=== PATIENT | male | born 1975 | race Caucasian/White ===

== ENCOUNTER 2020-08-14 11:43 | Inpatient (IN) | payer OTHER ==
[2020-08-14 12:51] VITALS: BMI 28.8
[2020-08-14] MEDS ORDERED: BISMUTH SUBSALICYLATE 524 MG/30 ML UD PO PRN (17:08)
[2020-08-14] MEDS ORDERED: IBUPROFEN 400 MG TABLET (FP) PO PRN (17:08)
[2020-08-14] MEDS ORDERED: MAGNESIUM HYDROX 2400MG/30ML ORAL SUSPENSION 30 ML CUP PO PRN (17:08)
[2020-08-14] MEDS ORDERED: ONDANSETRON *ODT* 4 MG TABLET SL PRN (17:08)
[2020-08-14] MEDS ORDERED: MAGNESIUM CITRATE 300 ML BOTTLE PO PRN (17:08)
[2020-08-14] MEDS ORDERED: ACETAMINOPHEN 325 MG TABLET (FP) PO PRN ×2 (17:08)
[2020-08-14] MEDS ORDERED: METHOCARBAMOL 500 MG TABLET PO PRN (17:08)
[2020-08-14] MEDS ORDERED: chlordiazePOXIDE HCL 25 MG CAPSULE PO PRN (17:08)
[2020-08-14] MEDS ORDERED: MENTHOL/PHENOL 1 EACH UD MM PRN (17:08)
[2020-08-14] MEDS ORDERED: MAG HYDROX/AL HYDROX/SIMETH 30 ML UNIT-DOSE CUP PO PRN (17:08)
[2020-08-14] MEDS ORDERED: NICOTINE POLACRILEX 2 MG GUM BUC PRN (17:08)
[2020-08-14] MEDS ORDERED: NALOXONE (NARCAN) HCL 4 MG/0.1 ML SPRAY NS PRN (17:08)
[2020-08-14] MEDS ORDERED: LORazepam 1 MG TABLET PO PRN (17:31)
[2020-08-14] MEDS: PRENATAL VITAMINS W/ FOLIC ACID TABLET (FP) PO SCH (18:42)
[2020-08-14] MEDS: hydrOXYzine PAMOATE 25 MG CAPSULE (FP) PO SCH ×2 (18:47→23:31)
[2020-08-14] MEDS: NICOTINE 14 MG/24 HOURS TOPICAL PATCH TD SCH (18:47)
[2020-08-14] MEDS ORDERED: chlordiazePOXIDE HCL 25 MG CAPSULE PO SCH (23:00)
[2020-08-14] MEDS: THIAMINE HCL 100 MG TABLET (FP) PO SCH (23:31)
[2020-08-14] MEDS: LORazepam 2 MG TABLET PO SCH (23:31)
[2020-08-14] MEDS: MELATONIN 5 MG TABLETS PO SCH (23:31)
[2020-08-15] MEDS: LORazepam 2 MG TABLET PO SCH ×4 (06:09→22:28)
[2020-08-15] MEDS: hydrOXYzine PAMOATE 25 MG CAPSULE (FP) PO SCH (06:09)
[2020-08-15 10:17] LABS: HEMATOCRIT 42.3 % (35.4-49); HEMOGLOBIN 14.3 GM/dL (11.7-16.9); MCHC 33.8 g/dl (32.0-35.9); MEAN CELL VOLUME 88.8 fl (80-96); MEAN PLT VOLUME 7.1 fl (7.5-11.1); PLATELET COUNT 270 K/MM3 (134-434); RBC 4.77 M/mm3 (4.00-5.60); RDW 13.4 % (11.9-15.9); WHITE BLOOD COUNT 7.2 K/mm3 (4.0-10.0)
[2020-08-15 10:34] LABS: ALBUMIN 3.3 g/dl (3.4-5.0); BLOOD UREA NITROGEN 10.1 mg/dL (7-18)
[2020-08-15 10:35] LABS: CREATININE 0.9 mg/dL (0.55-1.3)
[2020-08-15 10:36] LABS: BILIRUBIN,TOTAL 0.3 mg/dL (0.2-1); CALCIUM 9.2 mg/dL (8.5-10.1); TOT PROT 6.6 g/dl (6.4-8.2)
[2020-08-15] MEDS: NICOTINE 14 MG/24 HOURS TOPICAL PATCH TD SCH (11:25)
[2020-08-15] MEDS: PRENATAL VITAMINS W/ FOLIC ACID TABLET (FP) PO SCH (11:25)
[2020-08-15] MEDS: METHADONE HCL 40 MG DISPERSABLE TABLET PO SCH (11:25)
[2020-08-15] MEDS ORDERED: PNEUMOCOCCAL 23 VACCINE 0.5 ML VIAL IM ONE (12:15)
[2020-08-15] MEDS ORDERED: PNEUMOC 13-VAL CONJ-DIP CRM/PF 0.5 ML DISP.SYRIN IM ONE (12:15)
[2020-08-15] MEDS ORDERED: FLU VACCINE (FLULAVAL) PF 60 MCG/0.5 ML SYRINGE 2020-2021 IM ONE (12:15)
[2020-08-15] MEDS: MELATONIN 5 MG TABLETS PO SCH (22:26)
[2020-08-15] MEDS: THIAMINE HCL 100 MG TABLET (FP) PO SCH (22:27)
[2020-08-16] MEDS ORDERED: chlordiazePOXIDE HCL 25 MG CAPSULE PO SCH (05:00)
[2020-08-16] MEDS: METHADONE HCL 40 MG DISPERSABLE TABLET PO SCH (06:08)
[2020-08-16] MEDS: LORazepam 1 MG TABLET PO SCH ×4 (06:12→22:49)
[2020-08-16] MEDS: NICOTINE 14 MG/24 HOURS TOPICAL PATCH TD SCH (10:05)
[2020-08-16] MEDS: PRENATAL VITAMINS W/ FOLIC ACID TABLET (FP) PO SCH (10:06)
[2020-08-16] MEDS: THIAMINE HCL 100 MG TABLET (FP) PO SCH (22:48)
[2020-08-16] MEDS: MELATONIN 5 MG TABLETS PO SCH (22:48)
[2020-08-17] MEDS ORDERED: chlordiazePOXIDE HCL 10 MG CAPSULE PO PRN
[2020-08-17] MEDS ORDERED: LORazepam 0.5 MG TABLET PO PRN
[2020-08-17] MEDS ORDERED: chlordiazePOXIDE HCL 10 MG CAPSULE PO SCH (05:00)
[2020-08-17] MEDS: METHADONE HCL 40 MG DISPERSABLE TABLET PO SCH (05:58)
[2020-08-17] MEDS: LORazepam 0.5 MG TABLET PO SCH ×4 (06:01→22:25)
[2020-08-17 08:06] LABS: SARS-CoV-2 NAA Not Detected (Not Detected)
[2020-08-17] MEDS: NICOTINE 14 MG/24 HOURS TOPICAL PATCH TD SCH (10:06)
[2020-08-17] MEDS: PRENATAL VITAMINS W/ FOLIC ACID TABLET (FP) PO SCH (10:06)
[2020-08-17] MEDS: MELATONIN 5 MG TABLETS PO SCH (22:25)
[2020-08-17] MEDS: THIAMINE HCL 100 MG TABLET (FP) PO SCH (22:25)
[2020-08-18] MEDS ORDERED: LORazepam 0.5 MG TABLET PO ONE (05:00)
[2020-08-18] MEDS ORDERED: chlordiazePOXIDE HCL 10 MG CAPSULE PO SCH (05:00)
[2020-08-18 05:59] VITALS: BP 112/69; PULSE 75; TEMP 96.9
[2020-08-18] MEDS: METHADONE HCL 40 MG DISPERSABLE TABLET PO SCH (06:40)
[2020-08-18] MEDS: PRENATAL VITAMINS W/ FOLIC ACID TABLET (FP) PO SCH (10:12)
[2020-08-18] MEDS: NICOTINE 14 MG/24 HOURS TOPICAL PATCH TD SCH (10:12)
[2020-08-19] MEDS ORDERED: chlordiazePOXIDE HCL 10 MG CAPSULE PO ONE (05:00)
== END 2020-08-18 11:01 | disposition other institution (70) | DRG 773 ==
LOC: YASAS 11:43 → Y6N 16:06
PROVIDERS: ADMIT Allergy & Immunology; ATTEND Allergy & Immunology
PROC: HZ2ZZZZ Detoxification Services for Substance Abuse Treatment (ICD-10-PCS; principal; 2020-08-14)
DX: F10.230 Alcohol dependence with withdrawal, uncomplicated (principal); F11.20 Opioid dependence, uncomplicated; F14.10 Cocaine abuse, uncomplicated; F13.10 Sedative, hypnotic or anxiolytic abuse, uncomplicated; F17.210 Nicotine dependence, cigarettes, uncomplicated; F19.24 Other psychoactive substance dependence with psychoactive substance-induced mood disorder; E11.9 Type 2 diabetes mellitus without complications; R74.01 Elevation of levels of liver transaminase levels; Z59.0 Homelessness
CPT/HCPCS: 36415; 80053; 82962; 85027; 86780; C9803; U0003; U0005

== ENCOUNTER 2020-08-18 11:24 | Inpatient (IN) | payer OTHER ==
[2020-08-18] MEDS ORDERED: PNEUMOC 13-VAL CONJ-DIP CRM/PF 0.5 ML DISP.SYRIN IM ONE (11:58)
[2020-08-18] MEDS ORDERED: MAG HYDROX/AL HYDROX/SIMETH 30 ML UNIT-DOSE CUP PO PRN (12:06)
[2020-08-18] MEDS ORDERED: MAGNESIUM CITRATE 300 ML BOTTLE PO PRN (12:06)
[2020-08-18] MEDS ORDERED: guaiFENesin 200 MG/10 ML 10 ML UNIT-DOSE CUPS PO PRN (12:06)
[2020-08-18] MEDS ORDERED: MAGNESIUM HYDROX 2400MG/30ML ORAL SUSPENSION 30 ML CUP PO PRN (12:06)
[2020-08-18] MEDS ORDERED: LOPERAMIDE HCL 2 MG CAPSULE PO PRN (12:06)
[2020-08-18] MEDS ORDERED: ACETAMINOPHEN 325 MG TABLET (FP) PO PRN (12:06)
[2020-08-18] MEDS ORDERED: MENTHOL/PHENOL 1 EACH UD MM PRN (12:06)
[2020-08-18] MEDS ORDERED: IBUPROFEN 400 MG TABLET (FP) PO PRN (12:06)
[2020-08-18] MEDS ORDERED: P-EPHED 60MG/TRIPROLIDI 2.5MG TABLET PO PRN (12:06)
[2020-08-18] MEDS ORDERED: NICOTINE POLACRILEX 2 MG GUM BUC PRN (12:06)
[2020-08-18] MEDS: MELATONIN 5 MG TABLETS PO PRN (21:23)
[2020-08-18] MEDS: THIAMINE HCL 100 MG TABLET (FP) PO SCH (21:23)
[2020-08-18] MEDS: MIRTAZAPINE 15 MG TABLET (FP) PO SCH (21:24)
[2020-08-18] MEDS ORDERED: MELATONIN 5 MG TABLETS PO SCH (22:00)
[2020-08-19] MEDS: METHADONE HCL 40 MG DISPERSABLE TABLET PO SCH (06:08)
[2020-08-19] MEDS: PRENATAL VITAMINS W/ FOLIC ACID TABLET (FP) PO SCH (10:20)
[2020-08-19] MEDS ORDERED: PNEUMOCOCCAL 23 VACCINE 0.5 ML VIAL IM ONE (12:00)
[2020-08-19] MEDS: MELATONIN 5 MG TABLETS PO PRN (21:19)
[2020-08-19] MEDS: THIAMINE HCL 100 MG TABLET (FP) PO SCH (21:20)
[2020-08-19] MEDS: MIRTAZAPINE 15 MG TABLET (FP) PO SCH (21:20)
[2020-08-20] MEDS: METHADONE HCL 40 MG DISPERSABLE TABLET PO SCH (06:36)
[2020-08-20] MEDS: PRENATAL VITAMINS W/ FOLIC ACID TABLET (FP) PO SCH (10:40)
[2020-08-20] MEDS: THIAMINE HCL 100 MG TABLET (FP) PO SCH (21:22)
[2020-08-20] MEDS: MELATONIN 5 MG TABLETS PO PRN (21:22)
[2020-08-20] MEDS: MIRTAZAPINE 15 MG TABLET (FP) PO SCH (21:23)
[2020-08-21] MEDS: METHADONE HCL 40 MG DISPERSABLE TABLET PO SCH (06:12)
[2020-08-21] MEDS: PRENATAL VITAMINS W/ FOLIC ACID TABLET (FP) PO SCH (09:57)
[2020-08-21] MEDS ORDERED: cloNIDine HCL 0.1 MG TABLET PO ONE (20:11)
[2020-08-21] MEDS: THIAMINE HCL 100 MG TABLET (FP) PO SCH (21:16)
[2020-08-21] MEDS: MIRTAZAPINE 15 MG TABLET (FP) PO SCH (21:16)
[2020-08-22 05:09] LABS: SARS-CoV-2 NAA Not Detected (Not Detected)
[2020-08-22] MEDS: METHADONE HCL 40 MG DISPERSABLE TABLET PO SCH (05:40)
[2020-08-22 06:26] VITALS: PULSE 69
[2020-08-22 06:27] VITALS: BP 111/76; TEMP 97.3
[2020-08-22] MEDS: PRENATAL VITAMINS W/ FOLIC ACID TABLET (FP) PO SCH (10:12)
== END 2020-08-22 11:40 | disposition left against medical advice (07) | DRG 772 ==
LOC: YASAS 11:24 → Y3W 11:25
PROVIDERS: ADMIT Allergy & Immunology; ATTEND Allergy & Immunology
PROC: HZ42ZZZ Group Counseling for Substance Abuse Treatment, Cognitive-Behavioral (ICD-10-PCS; principal; 2020-08-18)
DX: F11.20 Opioid dependence, uncomplicated (principal); F10.20 Alcohol dependence, uncomplicated; F13.20 Sedative, hypnotic or anxiolytic dependence, uncomplicated; F17.210 Nicotine dependence, cigarettes, uncomplicated; E11.9 Type 2 diabetes mellitus without complications; I10 Essential (primary) hypertension; F19.282 Other psychoactive substance dependence with psychoactive substance-induced sleep disorder; F19.24 Other psychoactive substance dependence with psychoactive substance-induced mood disorder; F19.280 Other psychoactive substance dependence with psychoactive substance-induced anxiety disorder; F91.8 Other conduct disorders; Z91.19 Patient's noncompliance with other medical treatment and regimen
CPT/HCPCS: C9803; J0735; U0003; U0005